=== PATIENT | female | born 1950 | race Caucasian/White ===

== ENCOUNTER 2016-11-22 21:38 | Emergency (ER) | payer MEDICARE ==
[2016-11-22 23:40] LABS: CALC OSMOLALITY 254 mosm/kg (275-300); CALCIUM 9.6 mg/dL (8.5-10.1); CARBON DIOXIDE 23.8 mmol/L (21.0-32.0); CHLORIDE - SERUM 93 mmol/L (98-107); CREATININE - SERUM 0.8 mg/dL (0.6-1.3); GLUCOSE 113 mg/dL (74-106); SODIUM 127 mmol/L (136-145); UREA NITROGEN 10 mg/dL (7-18); eGFR NON AFRICAN AMERICAN 76 mL/min (90-120)
== END 2016-11-22 23:53 | disposition home or self-care (01) ==
LOC: D.ER 21:38
PROVIDERS: Nurse Practitioner Acute Care
DX: M79.605 Pain in left leg (principal); M79.604 Pain in right leg; M54.5 Low back pain; F17.200 Nicotine dependence, unspecified, uncomplicated

== ENCOUNTER 2018-03-18 19:37 | Inpatient (IN) | payer MEDICARE ==
[~2018-03-18] VITALS: Ht 157.5 cm; Wt 46.3 kg
--- NOTE | ~2018-03-18 | EC ---
PATIENT:PHUONG ESTES DATE OF SERVICE: 03/18/18 SEX: F MEDICAL RECORD: [id number] DATE OF : 50 LOCATION:[facility] AGE OF PATIENT: 67 ADMISSION DATE: 03/18/18 REFERRING PHYSICIAN: INTERPRETING PHYSICIAN: BRITNEY HERNANDEZ MD ECHOCARDIOGRAM REPORT ECHO CHARGES 4 ECHO COMPLETE Date: 03/19 CLINICAL DIAGNOSIS: CHRONIC CHF ECHOCARDIOGRAPHIC MEASUREMENTS (adult normal given) AC root (d.<3.7cm) 3.2 cm LV Septum d (<1.2 cm> 1.4 cm Valve Excursion 2.2 cm LV Septum (systole) 1.5 cm Left Atria (s.<4.0cm> 3.1 cm LVPW d(<1.2cm) 1.6 cm RV (d.<2.3cm) 2.7 cm LVPW (sytole) 1.9 cm LV diastole(<5.6CM) 3.9 cm MV E-F(>70mm/sec) cm LV systole 2.5 cm LVOT Diameter 2.0 cm MV exc.(>10mm) 1.3 cm Est.ejection fraction (50-75%) % DOPPLER: LVIT cm/sec A 93.0 cm/sec E 82.0 cm/sec LA cm/sec RVSP 40 mmHg LVOT 141 cm/sec AOP1/2T m/s Asc. Ao 155 cm/sec RVOT 122 cm/sec RA cm/sec PA 131 cm/sec AV Gradient Peak 9.63 mmHg AV Mean 4.83 mmHg AV Area 2.4 cm MV Gradient Peak 3.75 mmHg MV Mean 1.84 mmHg MV Area cm COMMENTS: Ice Rink Attendant: 2 CARRIE SANFORD Telephone Order Dispatcher: 3 Dr. Bowden TAPE# PACS Pericardial Effusion N DATE OF SERVICE: 03/19/2018 Adequate 2D echo, color-flow and spectral Doppler, and M-Mode. LVH is present. LV internal dimensions are normal. Wall motion is normal. EF greater than or equal to 55%. Aortic valve is tricuspid. No evidence of stenosis on Doppler interrogation. Left atrium is normal at 3.1 cm. Mitral valve shows no prolapse. Trace MR. Right-sided chamber size is normal. Trace TR. ECHOCARDIOGRAM REPORT [id number] PHUONG ESTES TRANSINT:[id number] Voice Confirmation ID: [id number] DOCUMENT ID: [id number] BRITNEY HERNANDEZ MD at [id number] CC: [id number] DICTATION DATE: 03/19/18 1645 [employer] FUNCTIONAL ANALYST: 03/19/18 1905 ADM IN [facility] [address] [id number]
[2018-03-18 20:29] LABS: BASOPHILS 0.3 % (0-2); EOSINOPHILS 5.3 % (0-7); HEMATOCRIT 31.3 % (36.0-48.0); HEMOGLOBIN 11.1 g/dL (12-16); IMMATURE GRANULOCYTES 0.1 % (0-5); LYMPHOCYTES 17.5 % (15-50); MCH 35.5 pg (26.0-34.0); MCHC 35.5 g/dL (31.0-37.0); MEAN PLATELET VOLUME 10.6 fL (7.4-10.4); NEUTROPHILS 70.8 % (40-80); RBC 3.13 10x6/uL (4.00-5.40); RDW 14.7 % (11.5-14.5)
[2018-03-18 20:30] LABS: PLATELET COUNT 139 10x3/uL (130-400)
[2018-03-18 20:34] LABS: APPEARANCE CLEAR (CLEAR); BILIRUBIN NEGATIVE (NEGATIVE); COLOR YELLOW (YELLOW); GLUCOSE NEGATIVE (NEGATIVE); KETONE NEGATIVE (NEGATIVE); NITRITE NEGATIVE (NEGATIVE); PROTEIN NEGATIVE (NEGATIVE); UROBILINOGEN NORMAL (NORMAL)
[2018-03-18 20:44] LABS: ALBUMIN 2.1 g/dL (3.4-5.0); ANION GAP 4.6 mmol/L (8-16); BILIRUBIN - TOTAL 0.6 mg/dL (0.2-1.3); CALCIUM 8.4 mg/dL (8.5-10.1); CARBON DIOXIDE 18.1 mmol/L (21.0-32.0); CREATININE - SERUM 1.1 mg/dL (0.6-1.3); POTASSIUM - SERUM 3.7 mmol/L (3.5-5.1); PROTEIN - SERUM 5.7 g/dL (6.4-8.2)
[2018-03-18 21:50] LABS: INR 1.22 (0.85-1.17)
[2018-03-18] MEDS ORDERED: TOPROL XL100 MG PO (23:06)
[2018-03-18 23:07] LABS: AMYLASE - SERUM 5 U/L (25-115); LIPASE 27 U/L (73-393)
[2018-03-18 23:33] VITALS: BP 122/58; BMI 18.7
[2018-03-19] VITALS (7 sets, daily range): BP systolic 83–166; BP diastolic 46–82; Ht 157.5 cm; Wt 46.3 kg
[2018-03-19] MEDS ORDERED: SYNTHROID112 MCG PO (01:35)
[2018-03-19] MEDS ORDERED: CATAPRES0.1 MG PO (01:36)
[2018-03-19] MEDS ORDERED: HYDROCODONE-APA1 TAB PO (01:38)
[2018-03-19] MEDS ORDERED: VENTOLIN HFA18 GM INH (01:41)
[2018-03-19] MEDS ORDERED: GLUCOPHAGE1000 MG PO (01:42)
[2018-03-19 06:22] LABS: ALBUMIN 2.5 g/dL (3.4-5.0); BILIRUBIN - DIRECT 0.27 mg/dL (0.00-0.30); BILIRUBIN - INDIRECT 0.24 mg/dL (0.00-1.00); BILIRUBIN - TOTAL 0.51 mg/dL (0.2-1.3); CHOL - HDL RATIO 2.8 ratio (2.3-4.1); LDL-HDL RATIO 1.2 ratio (1.5-3.5); PROTEIN - SERUM 5.7 g/dL (6.4-8.2)
[2018-03-19 10:20] LABS: CALC OSMOLALITY 253 mosm/kg (275-300); CALCIUM 8.5 mg/dL (8.5-10.1); CARBON DIOXIDE 17.4 mmol/L (21.0-32.0); CHLORIDE - SERUM 96 mmol/L (98-107); CREATININE - SERUM 0.8 mg/dL (0.6-1.3); GLUCOSE 136 mg/dL (74-106); SODIUM 126 mmol/L (136-145); UREA NITROGEN 10 mg/dL (7-18); eGFR NON AFRICAN AMERICAN 76 mL/min (90-120)
[2018-03-19 10:23] LABS: INR 1.25 (0.85-1.17); PROTIME 15.2 SECONDS (11.6-15.0)
[2018-03-19 10:24] LABS: APTT 38.7 SECONDS (22.8-39.4); BASOPHILS 0.4 % (0-2); EOSINOPHILS 3.6 % (0-7); HEMATOCRIT 26.4 % (36.0-48.0); HEMOGLOBIN 9.4 g/dL (12-16); IMMATURE GRANULOCYTES 0.2 % (0-5); MCH 35.6 pg (26.0-34.0); MCHC 35.6 g/dL (31.0-37.0); MEAN PLATELET VOLUME 11.8 fL (7.4-10.4); MONOCYTES 4.4 % (2-11); NEUTROPHILS 69.4 % (40-80); RBC 2.64 10x6/uL (4.00-5.40); RDW 14.7 % (11.5-14.5)
[2018-03-19 10:25] LABS: PLATELET COUNT 107 10x3/uL (130-400)
[2018-03-20] VITALS (9 sets, daily range): BP systolic 106–121; BP diastolic 54–67
[2018-03-20 07:40] LABS: CALC OSMOLALITY 271 mosm/kg (275-300); CALCIUM 8.3 mg/dL (8.5-10.1); CHLORIDE - SERUM 104 mmol/L (98-107); CREATININE - SERUM 0.7 mg/dL (0.6-1.3); GLUCOSE 137 mg/dL (74-106); SODIUM 136 mmol/L (136-145); UREA NITROGEN 8 mg/dL (7-18); eGFR NON AFRICAN AMERICAN 88 mL/min (90-120)
[2018-03-20 07:42] LABS: BASOPHILS 0.4 % (0-2); EOSINOPHILS 6.1 % (0-7); HEMOGLOBIN 9.1 g/dL (12-16); IMMATURE GRANULOCYTES 0.2 % (0-5); LYMPHOCYTES 19.6 % (15-50); MCH 35.3 pg (26.0-34.0); MCHC 36.4 g/dL (31.0-37.0); MONOCYTES 5.1 % (2-11); NEUTROPHILS 68.6 % (40-80); PLATELET COUNT 89 10x3/uL (130-400); RBC 2.58 10x6/uL (4.00-5.40); RDW 14.9 % (11.5-14.5); WBC 5.1 10x3/uL (4.8-10.8)
[2018-03-20 07:43] LABS: MCV 96.9 fL (80.0-100.0)
[2018-03-20 07:50] LABS: CARBON DIOXIDE 22.2 mmol/L (21.0-32.0); POTASSIUM - SERUM 3.3 mmol/L (3.5-5.1)
[2018-03-20 08:05] LABS: PLATELET ESTIMATE DECREASED
[2018-03-20 11:15] LABS: APTT 38.9 SECONDS (22.8-39.4); INR 1.27 (0.85-1.17); PROTIME 15.4 SECONDS (11.6-15.0)
[2018-03-20 13:18] LABS: ANA REFLEX - DIRECT Negative (Negative)
[2018-03-20 18:43] LABS: MACROPHAGES BF 2 %; MESOTHELIALS BF 24 %; NEUT - BF 19 %
[2018-03-21 00:37] VITALS: BP 128/72
[2018-03-21 08:54] VITALS: BP 102/61
[2018-03-21 11:50] VITALS: BP 85/46
[2018-03-21 15:57] VITALS: BP 96/54
[2018-03-21 23:18] VITALS: BP 88/51
[2018-03-22 05:17] VITALS: BP 92/53
[2018-03-22 08:14] VITALS: BP 96/60
[2018-03-22 12:08] LABS: MITOCHONDRIAL ANTIBODY 3.8 Units (0.0-20.0); SMOOTH MUSCLE ABS (ACTIN) 9 Units (0-19)
[2018-03-22 12:13] VITALS: BP 109/68
[2018-03-22 16:03] VITALS: BP 115/65
[2018-03-23 05:26] VITALS: BP 119/69
[2018-03-23 07:11] LABS: BASOPHILS 0.4 % (0-2); EOSINOPHILS 5.6 % (0-7); HEMATOCRIT 30.6 % (36.0-48.0); HEMOGLOBIN 10.9 g/dL (12-16); IMMATURE GRANULOCYTES 0.2 % (0-5); LYMPHOCYTES 18.4 % (15-50); MCH 35.6 pg (26.0-34.0); MCHC 35.6 g/dL (31.0-37.0); MEAN PLATELET VOLUME 11.1 fL (7.4-10.4); MONOCYTES 13.7 % (2-11); NEUTROPHILS 61.7 % (40-80); RBC 3.06 10x6/uL (4.00-5.40); RDW 15.9 % (11.5-14.5); WBC 4.7 10x3/uL (4.8-10.8)
[2018-03-23 07:16] LABS: PLATELET COUNT 146 10x3/uL (130-400)
[2018-03-23 07:28] LABS: ANION GAP 14.9 mmol/L (8-16); BILIRUBIN - TOTAL 0.9 mg/dL (0.2-1.3); CALCIUM 8.2 mg/dL (8.5-10.1); CARBON DIOXIDE 21.5 mmol/L (21.0-32.0); POTASSIUM - SERUM 4.4 mmol/L (3.5-5.1); PROTEIN - SERUM 5.5 g/dL (6.4-8.2)
[2018-03-23 09:01] VITALS: BP 105/68
[2018-03-23 13:06] VITALS: BP 100/63
[2018-03-23 15:22] VITALS: BP 115/67
[2018-03-23 21:56] VITALS: BP 120/66
[2018-03-24 05:18] VITALS: BP 134/64
[2018-03-24 08:55] VITALS: BP 133/74
[2018-03-24 12:48] VITALS: BP 136/59
[2018-03-24 16:04] VITALS: BP 101/50
[2018-03-24 21:26] VITALS: BP 135/68
[2018-03-25 04:47] VITALS: BP 154/64
[2018-03-25 09:03] VITALS: BP 159/82
[2018-03-25 12:35] VITALS: BP 93/52
[2018-03-25 15:56] VITALS: BP 95/58
[2018-03-25 21:41] VITALS: BP 116/58
[2018-03-26 02:35] VITALS: BP 114/52
[2018-03-26 06:20] VITALS: BP 91/45
[2018-03-26 09:07] VITALS: BP 129/67
[2018-03-26 13:13] VITALS: BP 116/53
[2018-03-26 14:47] LABS: BASOPHILS 0.1 % (0-2); EOSINOPHILS 1.1 % (0-7); IMMATURE GRANULOCYTES 0.3 % (0-5); MCH 35.8 pg (26.0-34.0); MCHC 35.7 g/dL (31.0-37.0); MCV 100.4 fL (80.0-100.0); MEAN PLATELET VOLUME 11.4 fL (7.4-10.4); MONOCYTES 14.4 % (2-11); NEUTROPHILS 67.1 % (40-80); RBC 2.79 10x6/uL (4.00-5.40); RDW 16.1 % (11.5-14.5); WBC 7.3 10x3/uL (4.8-10.8)
[2018-03-26 14:48] LABS: PLATELET COUNT 203 10x3/uL (130-400)
[2018-03-26 15:00] LABS: ALBUMIN 1.8 g/dL (3.4-5.0); ALKALINE PHOSPHATASE 91 U/L (46-116); ALT (SGPT) 35 U/L (10-68); BILIRUBIN - TOTAL 0.41 mg/dL (0.2-1.3); CALC OSMOLALITY 267 mosm/kg (275-300); CALCIUM 8.4 mg/dL (8.5-10.1); CARBON DIOXIDE 19.7 mmol/L (21.0-32.0); CHLORIDE - SERUM 102 mmol/L (98-107); CREATININE - SERUM 0.7 mg/dL (0.6-1.3); GLUCOSE 172 mg/dL (74-106); POTASSIUM - SERUM 4.8 mmol/L (3.5-5.1); SODIUM 130 mmol/L (136-145); UREA NITROGEN 22 mg/dL (7-18); eGFR NON AFRICAN AMERICAN 88 mL/min (90-120)
[2018-03-26 16:23] VITALS: BP 130/68
[2018-03-26 22:16] VITALS: BP 139/69
[2018-03-27 05:26] VITALS: BP 141/73
[2018-03-27 08:03] VITALS: BP 132/62
[2018-03-27 08:24] LABS: CALC OSMOLALITY 267 mosm/kg (275-300); CALCIUM 8.6 mg/dL (8.5-10.1); CHLORIDE - SERUM 102 mmol/L (98-107); CREATININE - SERUM 0.6 mg/dL (0.6-1.3); GLUCOSE 162 mg/dL (74-106); POTASSIUM - SERUM 4.7 mmol/L (3.5-5.1); SODIUM 130 mmol/L (136-145); UREA NITROGEN 22 mg/dL (7-18); eGFR NON AFRICAN AMERICAN > 90 mL/min (90-120)
[2018-03-27 12:58] VITALS: BP 102/61
[2018-03-28 13:11] LABS: HEP B CORE AB TOTAL Negative (Negative); HEPATITIS C ANTIBODY <0.1 (0.0-0.9)
[2018-03-30 12:12] LABS: ALPHA FETOPROTEIN -(TUMOR MRK) 3.6 ng/mL (0.0-8.3); CEA 18.3 ng/mL (0.0-4.7)
== END 2018-03-27 15:17 | DRG 947 ==
LOC: D.ER 19:37 → D.EDHOLD 21:35 → D.MS 21:35
PROVIDERS: Emergency Medicine; Internal Medicine Gastroenterology; Legal Medicine; Physician Assistant; Radiology Diagnostic Radiology; Radiology Vascular & Interventional Radiology
PROC: 0W9G3ZZ Drainage of Peritoneal Cavity, Percutaneous Approach (ICD-10-PCS; principal; 2018-03-20 15:40)
DX: R18.8 Other ascites (principal); E43 Unspecified severe protein-calorie malnutrition; I63.9 Cerebral infarction, unspecified; E87.1 Hypo-osmolality and hyponatremia; K86.1 Other chronic pancreatitis; Z68.1 Body mass index [BMI] 19.9 or less, adult; E87.2 Acidosis; D61.818 Other pancytopenia; R60.1 Generalized edema; E11.9 Type 2 diabetes mellitus without complications; Z79.84 Long term (current) use of oral hypoglycemic drugs; J44.9 Chronic obstructive pulmonary disease, unspecified; I10 Essential (primary) hypertension; K21.9 Gastro-esophageal reflux disease without esophagitis; E88.09 Other disorders of plasma-protein metabolism, not elsewhere classified; D69.6 Thrombocytopenia, unspecified; D64.9 Anemia, unspecified; B37.9 Candidiasis, unspecified; R40.2412 Glasgow coma scale score 13-15, at arrival to emergency department

== ENCOUNTER 2018-03-27 11:47 | Inpatient (IN) | payer MEDICARE ==
[~2018-03-27] VITALS: Ht 157.5 cm; Wt 42.4 kg
[~2018-03-27 11:47] MED LIST: CATAPRES0.1 MG PO; GLUCOPHAGE1000 MG PO; HYDROCODONE-APA1 TAB PO; SYNTHROID112 MCG PO; TOPROL XL100 MG PO; VENTOLIN HFA18 GM INH
[2018-03-27 17:33] VITALS: BP 118/54; BMI 24.4
[2018-03-27 19:00] VITALS: BP 124/63
[2018-03-28 08:00] VITALS: BP 122/72
[2018-03-28 10:45] VITALS: Ht 157.5 cm; Wt 42.4 kg
[2018-03-28 22:35] VITALS: BP 133/74
[2018-03-29 18:48] VITALS: BP 98/57
[2018-03-29 23:13] VITALS: BP 128/70
[2018-03-30 07:48] VITALS: BP 96/45
[2018-03-30 19:00] VITALS: BP 121/59
[2018-03-31 06:35] LABS: BASOPHILS 0.5 % (0-2); EOSINOPHILS 9.1 % (0-7); HEMOGLOBIN 10.3 g/dL (12-16); IMMATURE GRANULOCYTES 0.3 % (0-5); MCH 35.8 pg (26.0-34.0); MCHC 34.3 g/dL (31.0-37.0); MCV 104.2 fL (80.0-100.0); MEAN PLATELET VOLUME 11.3 fL (7.4-10.4); MONOCYTES 11.9 % (2-11); NEUTROPHILS 52.2 % (40-80); PLATELET COUNT 189 10x3/uL (130-400); RBC 2.88 10x6/uL (4.00-5.40); RDW 16.4 % (11.5-14.5); WBC 5.7 10x3/uL (4.8-10.8)
[2018-03-31 06:48] LABS: CALC OSMOLALITY 280 mosm/kg (275-300); CALCIUM 8.6 mg/dL (8.5-10.1); CARBON DIOXIDE 20.1 mmol/L (21.0-32.0); CHLORIDE - SERUM 108 mmol/L (98-107); CREATININE - SERUM 0.8 mg/dL (0.6-1.3); POTASSIUM - SERUM 3.4 mmol/L (3.5-5.1); SODIUM 140 mmol/L (136-145); UREA NITROGEN 15 mg/dL (7-18); eGFR NON AFRICAN AMERICAN 76 mL/min (90-120)
[2018-03-31 06:51] LABS: GLUCOSE 111 mg/dL (74-106)
[2018-03-31 08:07] VITALS: BP 120/57
[2018-03-31 19:00] VITALS: BP 121/62
[2018-04-01 08:20] VITALS: BP 102/43
[2018-04-01 15:14] LABS: ALBUMIN 2.3 g/dL (3.4-5.0); BILIRUBIN - DIRECT 0.25 mg/dL (0.00-0.30); BILIRUBIN - INDIRECT 0.23 mg/dL (0.00-1.00); BILIRUBIN - TOTAL 0.48 mg/dL (0.2-1.3)
[2018-04-01 19:00] VITALS: BP 121/58
[2018-04-02 07:59] VITALS: BP 118/64
[2018-04-02 19:00] VITALS: BP 117/59
[2018-04-03 06:22] LABS: BASOPHILS 0.5 % (0-2); HEMOGLOBIN 10.5 g/dL (12-16); IMMATURE GRANULOCYTES 0.5 % (0-5); LYMPHOCYTES 25.2 % (15-50); MCH 35.5 pg (26.0-34.0); MCHC 33.9 g/dL (31.0-37.0); MCV 104.7 fL (80.0-100.0); MEAN PLATELET VOLUME 11.3 fL (7.4-10.4); MONOCYTES 10.2 % (2-11); NEUTROPHILS 60.6 % (40-80); PLATELET COUNT 209 10x3/uL (130-400); RBC 2.96 10x6/uL (4.00-5.40); RDW 15.8 % (11.5-14.5)
[2018-04-03 06:33] LABS: ANION GAP 15.9 mmol/L (8-16); CALCIUM 8.6 mg/dL (8.5-10.1); CARBON DIOXIDE 19.6 mmol/L (21.0-32.0); POTASSIUM - SERUM 3.5 mmol/L (3.5-5.1)
[2018-04-03 08:36] VITALS: BP 101/55
[2018-04-03 19:00] VITALS: BP 111/54
[2018-04-04 08:00] VITALS: BP 115/68
[2018-04-04 19:15] VITALS: BP 116/53
[2018-04-05 07:58] VITALS: BP 127/63
[2018-04-05 20:40] VITALS: BP 111/54
[2018-04-06 05:22] LABS: BASOPHILS 0.6 % (0-2); HEMATOCRIT 27.1 % (36.0-48.0); HEMOGLOBIN 9.2 g/dL (12-16); IMMATURE GRANULOCYTES 0.5 % (0-5); LYMPHOCYTES 32.4 % (15-50); MCH 35.2 pg (26.0-34.0); MCHC 33.9 g/dL (31.0-37.0); MCV 103.8 fL (80.0-100.0); MEAN PLATELET VOLUME 10.9 fL (7.4-10.4); MONOCYTES 7.5 % (2-11); PLATELET COUNT 216 10x3/uL (130-400); RBC 2.61 10x6/uL (4.00-5.40); RDW 15.4 % (11.5-14.5); WBC 6.6 10x3/uL (4.8-10.8)
[2018-04-06 05:37] LABS: ALBUMIN 1.9 g/dL (3.4-5.0); ANION GAP 16.7 mmol/L (8-16); BILIRUBIN - TOTAL 0.3 mg/dL (0.2-1.3); CALCIUM 7.8 mg/dL (8.5-10.1); CARBON DIOXIDE 17.7 mmol/L (21.0-32.0); CREATININE - SERUM 1.4 mg/dL (0.6-1.3); POTASSIUM - SERUM 3.4 mmol/L (3.5-5.1); PROTEIN - SERUM 5.1 g/dL (6.4-8.2)
[2018-04-06 07:45] VITALS: BP 112/64
[2018-04-06 19:00] VITALS: BP 103/63
[2018-04-06 21:05] VITALS: BP 118/65
[2018-04-07 06:38] LABS: BASOPHILS 0.5 % (0-2); EOSINOPHILS 2.2 % (0-7); HEMATOCRIT 29.6 % (36.0-48.0); HEMOGLOBIN 9.9 g/dL (12-16); IMMATURE GRANULOCYTES 0.3 % (0-5); LYMPHOCYTES 25.8 % (15-50); MCHC 33.4 g/dL (31.0-37.0); MCV 104.6 fL (80.0-100.0); MEAN PLATELET VOLUME 11.3 fL (7.4-10.4); MONOCYTES 6.5 % (2-11); NEUTROPHILS 64.7 % (40-80); RBC 2.83 10x6/uL (4.00-5.40); RDW 15.4 % (11.5-14.5)
[2018-04-07 06:44] LABS: PLATELET COUNT 269 10x3/uL (130-400); WBC 9.3 10x3/uL (4.8-10.8)
[2018-04-07 06:52] LABS: ANION GAP 14.7 mmol/L (8-16); CALCIUM 7.8 mg/dL (8.5-10.1); CARBON DIOXIDE 18.5 mmol/L (21.0-32.0); CREATININE - SERUM 1.3 mg/dL (0.6-1.3); POTASSIUM - SERUM 3.2 mmol/L (3.5-5.1)
[2018-04-07 08:05] VITALS: BP 95/55
[2018-04-07 19:00] VITALS: BP 99/53
[2018-04-08 08:21] VITALS: BP 112/59
[2018-04-08 19:05] VITALS: BP 92/47
[2018-04-09 07:33] VITALS: BP 93/45
[2018-04-09] MEDS ORDERED: MEGACE40 MG NG (08:12)
[2018-04-09] MEDS ORDERED: HYDROCODONE-APA1 TAB PO (08:12)
[2018-04-09] MEDS ORDERED: CARAFATE1 G/10 ML PO (08:13)
[2018-04-09] MEDS ORDERED: LINZESS145 MCG PO (08:13)
[2018-04-09] MEDS ORDERED: CREON (PANCRELI1 CAP PO (08:13)
[2018-04-09] MEDS ORDERED: PROTONIX40 MG PO (08:13)
== END 2018-04-09 14:05 | disposition home health service (06) | DRG 92 ==
LOC: D.REHAB 11:47
PROVIDERS: Emergency Medicine
DX: G72.89 Other specified myopathies (principal); E46 Unspecified protein-calorie malnutrition; E87.2 Acidosis; Z68.1 Body mass index [BMI] 19.9 or less, adult; K86.1 Other chronic pancreatitis; R60.1 Generalized edema; E11.9 Type 2 diabetes mellitus without complications; R74.8 Abnormal levels of other serum enzymes; E88.09 Other disorders of plasma-protein metabolism, not elsewhere classified; I10 Essential (primary) hypertension; K21.9 Gastro-esophageal reflux disease without esophagitis; J43.9 Emphysema, unspecified; F17.200 Nicotine dependence, unspecified, uncomplicated; K59.00 Constipation, unspecified

== ENCOUNTER 2018-04-11 12:58 | Inpatient (IN) | payer MEDICARE ==
[~2018-04-11] VITALS: Ht 157.5 cm; Wt 52.3 kg
[~2018-04-11 12:58] MED LIST changes: +CARAFATE1 G/10 ML PO; +CREON (PANCRELI1 CAP PO; +LINZESS145 MCG PO; +MEGACE40 MG NG; +PROTONIX40 MG PO
[2018-04-11 13:38] LABS: COLOR YELLOW (YELLOW)
[2018-04-11 13:39] LABS: APPEARANCE CLEAR (CLEAR); BASOPHILS 0.2 % (0-2); BILIRUBIN NEGATIVE (NEGATIVE); EOSINOPHILS 1.2 % (0-7); GLUCOSE NEGATIVE (NEGATIVE); HEMATOCRIT 26.9 % (36.0-48.0); HEMOGLOBIN 9.2 g/dL (12-16); IMMATURE GRANULOCYTES 0.4 % (0-5); KETONE NEGATIVE (NEGATIVE); LYMPHOCYTES 25.7 % (15-50); MCH 35.1 pg (26.0-34.0); MCHC 34.2 g/dL (31.0-37.0); MCV 102.7 fL (80.0-100.0); MEAN PLATELET VOLUME 11.5 fL (7.4-10.4); NEUTROPHILS 61.5 % (40-80); NITRITE NEGATIVE (NEGATIVE); PLATELET COUNT 246 10x3/uL (130-400); PROTEIN NEGATIVE (NEGATIVE); RBC 2.62 10x6/uL (4.00-5.40); RDW 14.9 % (11.5-14.5); UROBILINOGEN NORMAL (NORMAL); WBC 8.5 10x3/uL (4.8-10.8)
[2018-04-11 13:52] LABS: UDS - AMPHET NEGATIVE QUAL (NEGATIVE); UDS - BARB NEGATIVE QUAL (NEGATIVE); UDS - BENZO POSITIVE QUAL (NEGATIVE); UDS - COCAINE NEGATIVE QUAL (NEGATIVE); UDS - OPIATE POSITIVE QUAL (NEGATIVE); UDS - PCP NEGATIVE QUAL (NEGATIVE); UDS - THC NEGATIVE QUAL (NEGATIVE)
[2018-04-11 13:54] LABS: ALBUMIN 2.2 g/dL (3.4-5.0); ANION GAP 17.2 mmol/L (8-16); BILIRUBIN - TOTAL 0.45 mg/dL (0.2-1.3); CALCIUM 8.5 mg/dL (8.5-10.1); CARBON DIOXIDE 17.4 mmol/L (21.0-32.0); CREATININE - SERUM 1.1 mg/dL (0.6-1.3); PROTEIN - SERUM 6.1 g/dL (6.4-8.2)
[2018-04-11 13:55] LABS: POTASSIUM - SERUM 3.6 mmol/L (3.5-5.1)
[2018-04-11 20:50] VITALS: BP 110/67
[2018-04-11 23:26] VITALS: BP 110/67; BMI 18.3
[2018-04-12 01:31] VITALS: BP 110/66
[2018-04-12 05:41] VITALS: BP 156/63
[2018-04-12 09:09] VITALS: BP 116/70
[2018-04-12 12:00] VITALS: BP 130/72
[2018-04-12 17:23] VITALS: BP 103/54
[2018-04-12 22:05] VITALS: BP 90/38
[2018-04-13 02:28] VITALS: BP 89/39
[2018-04-13 05:22] VITALS: BP 104/51
[2018-04-13 08:20] VITALS: BP 95/49
[2018-04-13 08:25] LABS: PHOSPHOROUS 2.4 mg/dL (2.5-4.9)
[2018-04-13 08:32] LABS: POTASSIUM - SERUM 2.9 mmol/L (3.5-5.1)
[2018-04-13 11:24] VITALS: BP 120/54
[2018-04-13 16:10] VITALS: BP 111/61
[2018-04-13 20:24] VITALS: BP 104/45
[2018-04-14 06:30] LABS: MAGNESIUM - SERUM 1.2 mg/dL (1.8-2.4); PHOSPHOROUS 2.4 mg/dL (2.5-4.9); POTASSIUM - SERUM 3.7 mmol/L (3.5-5.1)
[2018-04-14 08:35] VITALS: BP 127/73
[2018-04-14 12:02] VITALS: BP 118/65
[2018-04-14 16:12] VITALS: BP 129/79
[2018-04-14 20:00] VITALS: BP 106/55
[2018-04-15] VITALS (12 sets, daily range): BP systolic 94–117; BP diastolic 44–72; Ht 157.5 cm; Wt 52.3 kg
[2018-04-15 06:23] LABS: BASOPHILS 0.1 % (0-2); EOSINOPHILS 0.2 % (0-7); HEMATOCRIT 25.9 % (36.0-48.0); HEMOGLOBIN 8.9 g/dL (12-16); IMMATURE GRANULOCYTES 0.4 % (0-5); LYMPHOCYTES 7.3 % (15-50); MCH 35.6 pg (26.0-34.0); MCHC 34.4 g/dL (31.0-37.0); MCV 103.6 fL (80.0-100.0); MEAN PLATELET VOLUME 11.9 fL (7.4-10.4); MONOCYTES 5.9 % (2-11); NEUTROPHILS 86.1 % (40-80); RDW 15.7 % (11.5-14.5); WBC 16.4 10x3/uL (4.8-10.8)
[2018-04-15 06:25] LABS: INR 1.41 (0.85-1.17); PROTIME 16.8 SECONDS (11.6-15.0)
[2018-04-15 06:36] LABS: PLATELET COUNT 164 10x3/uL (130-400)
[2018-04-15 06:48] LABS: ALBUMIN 1.9 g/dL (3.4-5.0); ANION GAP 17.4 mmol/L (8-16); BILIRUBIN - TOTAL 0.35 mg/dL (0.2-1.3); CALCIUM 7.9 mg/dL (8.5-10.1); CARBON DIOXIDE 14.4 mmol/L (21.0-32.0); CHOL - HDL RATIO 1.5 ratio (2.3-4.1); CREATININE - SERUM 1.2 mg/dL (0.6-1.3); LDL-HDL RATIO 0.3 ratio (1.5-3.5); MAGNESIUM - SERUM 1.2 mg/dL (1.8-2.4); POTASSIUM - SERUM 3.8 mmol/L (3.5-5.1); PRE-ALBUMIN 8.2 mg/dL (18.0-35.7); PROTEIN - SERUM 5.4 g/dL (6.4-8.2)
[2018-04-15 17:04] LABS: NEUT - BF 14 %
[2018-04-15 17:05] LABS: MACROPHAGES BF 37 %; MESOTHELIALS BF 9 %
[2018-04-16 01:03] VITALS: BP 129/85
[2018-04-16 06:37] LABS: BASOPHILS 0.1 % (0-2); EOSINOPHILS 0.1 % (0-7); HEMATOCRIT 25.2 % (36.0-48.0); HEMOGLOBIN 8.6 g/dL (12-16); IMMATURE GRANULOCYTES 1.4 % (0-5); LYMPHOCYTES 3.8 % (15-50); MCH 35.1 pg (26.0-34.0); MCHC 34.1 g/dL (31.0-37.0); MCV 102.9 fL (80.0-100.0); MEAN PLATELET VOLUME 12.4 fL (7.4-10.4); MONOCYTES 8.4 % (2-11); NEUTROPHILS 86.2 % (40-80); RBC 2.45 10x6/uL (4.00-5.40); RDW 15.9 % (11.5-14.5)
[2018-04-16 06:42] LABS: PLATELET COUNT 128 10x3/uL (130-400)
[2018-04-16 06:56] LABS: INR 2.08 (0.85-1.17); PROTIME 22.8 SECONDS (11.6-15.0)
[2018-04-16 07:00] VITALS: BP 124/70
[2018-04-16 07:00] LABS: ALBUMIN 1.6 g/dL (3.4-5.0); ANION GAP 20.7 mmol/L (8-16); BILIRUBIN - TOTAL 0.28 mg/dL (0.2-1.3); CALCIUM 7.5 mg/dL (8.5-10.1); CARBON DIOXIDE 11.3 mmol/L (21.0-32.0); CREATININE - SERUM 1.4 mg/dL (0.6-1.3); PROTEIN - SERUM 4.8 g/dL (6.4-8.2)
[2018-04-16 08:19] LABS: ALPHA FETOPROTEIN -(TUMOR MRK) 2.7 ng/mL (0.0-8.3)
[2018-04-16 13:03] VITALS: BP 111/54
[2018-04-16 13:17] LABS: CEA 11.5 ng/mL (0.0-4.7)
[2018-04-16 16:39] VITALS: BP 90/48
[2018-04-16 20:00] VITALS: BP 115/62
[2018-04-17] VITALS: BP 104/56
[2018-04-17 09:01] VITALS: BP 87/48
[2018-04-17 12:17] VITALS: BP 93/41
[2018-04-17 15:17] VITALS: BP 106/82
[2018-04-18 08:21] VITALS: BP 76/31
[2018-04-18 11:46] VITALS: BP 69/37
[2018-04-18 15:49] VITALS: BP 69/32
[2018-04-18 21:06] VITALS: BP 136/114
== END 2018-04-18 22:05 | DRG 438 ==
LOC: D.ER 12:58 → D.EDHOLD 16:17 → D.M2 16:17 → OBSVTIME 16:17 → D.M2 17:13
PROVIDERS: Family Medicine; Internal Medicine Gastroenterology; Legal Medicine; Radiology Diagnostic Radiology
PROC: 0W9G3ZZ Drainage of Peritoneal Cavity, Percutaneous Approach (ICD-10-PCS; principal; 2018-04-15 13:05)
DX: K86.89 Other specified diseases of pancreas (principal); E43 Unspecified severe protein-calorie malnutrition; R40.2314 Coma scale, best motor response, none, 24 hours or more after hospital admission; R40.2114 Coma scale, eyes open, never, 24 hours or more after hospital admission; R18.8 Other ascites; Z68.1 Body mass index [BMI] 19.9 or less, adult; K59.00 Constipation, unspecified; R68.81 Early satiety; J44.9 Chronic obstructive pulmonary disease, unspecified; E11.9 Type 2 diabetes mellitus without complications; K21.9 Gastro-esophageal reflux disease without esophagitis; K75.81 Nonalcoholic steatohepatitis (NASH); K76.0 Fatty (change of) liver, not elsewhere classified; R40.2234 Coma scale, best verbal response, inappropriate words, 24 hours or more after hospital admission